=== PATIENT | male | born 1995 | race Caucasian/White ===

== ENCOUNTER 2022-03-26 19:17 | Emergency (ER) | payer OTHER ==
[~2022-03-26] VITALS: Ht 180.3 cm; Wt 111.1 kg
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
--- NOTE | 2022-03-26 20:16 | NUR ---
XRAY AT BEDSIDE
[2022-03-26] MEDS ORDERED: IBUPROFEN 600 MG TABLET PO ONE (21:00)
--- NOTE | 2022-03-26 21:05 | NUR ---
SLING APPLIED TO LEFT ARM; TOLERATING WELL
[2022-03-26] MEDS ORDERED: IBUP-1955 PO (21:11)
[2022-03-26] MEDS ORDERED: IBUPROFEN 600 MG TABLET ONE (21:16)
--- NOTE | 2022-03-26 21:22 | NUR ---
Patient discharged to home in stable condition. Written and verbal after care instructions given. Patient verbalizes understanding of instruction. pt ambulatory with a steady gait
[2022-03-26 21:39] VITALS: BP 135/75
== END 2022-03-26 21:27 | disposition home or self-care (01) ==
LOC: ER 19:22
DX: S42.92XA Fracture of left shoulder girdle, part unspecified, initial encounter for closed fracture (principal); S09.90XA Unspecified injury of head, initial encounter; V00.131A Fall from skateboard, initial encounter; Y93.89 Activity, other specified; Y92.89 Other specified places as the place of occurrence of the external cause; Y99.8 Other external cause status
CPT/HCPCS: 73030-TC

== ENCOUNTER 2024-02-10 17:43 | Emergency (ER) | payer OTHER ==
[~2024-02-10] VITALS: Ht 188 cm; Wt 117.9 kg
[~2024-02-10 17:43] MED LIST: IBUP-1955 PO
[2024-02-10] MEDS ORDERED: KETAMINE HCL(200MG/20ML) 10 MG/ML VIAL IV ONE (18:30)
[2024-02-10] MEDS ORDERED: FENTANYL PF 100MCG/2ML AMPUL ONE (18:57)
[2024-02-10] MEDS: FENTANYL PF 100MCG/2ML AMPUL IM ONE (18:59)
[2024-02-10] MEDS ORDERED: KETAMINE HCL (500MG/10ML) 50 MG/ML VIAL ONE (19:28)
[2024-02-10] MEDS ORDERED: PROPOFOL 20 ML IV ONE (19:28)
[2024-02-10] MEDS: PROPOFOL 200 MG/20 ML VIAL IV ONE (19:42)
[2024-02-10] MEDS: KETAMINE HCL (500MG/10ML) 50 MG/ML VIAL IV ONE (19:42)
[2024-02-10] MEDS ORDERED: KETO10TA2 PO (19:46)
[2024-02-10 20:30] VITALS: BP 139/92; TEMP 97.9; O2SAT 98
== END 2024-02-10 20:25 | disposition home or self-care (01) ==
LOC: ER 18:44
DX: S43.085A Other dislocation of left shoulder joint, initial encounter (principal); X50.9XXA Other and unspecified overexertion or strenuous movements or postures, initial encounter; Y93.89 Activity, other specified; Y92.810 Car as the place of occurrence of the external cause; Y99.8 Other external cause status
CPT/HCPCS: 99284; 23650; 73030 ×2; 96372; J2704; J3010; J3490; J7030